=== PATIENT | female | born 1995 | race Caucasian/White ===

== ENCOUNTER 2017-03-30 21:55 | Emergency (ER) | payer SELFPAY ==
[2017-03-30 22:37] VITALS: TEMP 98.5; BMI 20.5
[2017-03-31] MEDS ORDERED: SODIUM CHLORIDE 0.9% 500 ML INFUS.BAG IV ONE (01:29)
[2017-03-31 01:53] LABS: BASOPHIL 0.5 % (0-2.0); MCH 26.9 pg (25.7-33.7); MCHC 33.2 g/dl (32.0-36.0); MEAN CELL VOLUME 81.1 fl (80-96); NEUTROPHILS 76.7 % (42.8-82.8); PLATELET COUNT 213 K/MM3 (134-434); RDW 15.5 % (11.6-15.6); WHITE BLOOD COUNT 8.6 K/mm3 (4.0-10.0)
--- NOTE | 2017-03-31 02:14 | PDOC ---
History of Present Illness - General History Source: Patient Exam Limitations: No Limitations - History of Present Illness Initial Comments: 03/31/17 02:15 The patient is a 21 year old female with no significant past medical history who presents to the ED for bilateral hand numbness and tingling. Patient reports she was out a friends house drinking and states she does not remember most of the night. Earlier today she was told that a friend found her in the bathroom passed out on the floor and noted a small kendra on her left cheekbone near her eye. Patient reports persistent vomiting all day today and no abdominal pain or diarrhea. Prior to arrival, she noted suddenly that both of her hands clenched tight. States she was unable to open both of her hands for about 10 minutes, her hands started slowly becoming less stiff. States both of her hands and still numb and tingling. The patient denies fever, chills, cough, SOB, chest pain, and palpitations. Allergies: NKDA Social History: No alcohol, tobacco, or drug use reported. Past Surgical History: None reported PCP: Dr. Kiran James <Tasia Stokes - Last Filed: 03/31/17 04:40> <Rosa Stewart - Last Filed: 03/31/17 06:48> - General Chief Complaint: Nausea/Vomiting Stated Complaint: BODY TINGLING Time Seen by Provider: 03/30/17 23:32 Past History <Tasia Stokes - Last Filed: 03/31/17 04:40> - Psycho/Social/Smoking Cessation Hx Suicidal Ideation: No Smoking History: Never smoked Information on smoking cessation initiated: No <Rosa Stewart - Last Filed: 03/31/17 06:48> - Past Medical History Allergies/Adverse Reactions: Allergies Allergy/AdvReac Type Severity Reaction Status Date / Time No Known Allergies Allergy Verified 03/30/17 22:12 Home Medications: Ambulatory Orders NK [No Known Home Medication] 03/30/17 Review of Systems - Review of Systems Able to Perform ROS?: Yes Comments:: 03/31/17 02:15 CONSTITUTIONAL: Absent: fever, no chills, no fatigue EYES: Absent: visual changes ENT: Absent: ear pain, no sore throat CARDIOVASCULAR: Absent: chest pain, no palpitations RESPIRATORY: Absent: cough, no SOB GI: +vomiting Absent: abdominal pain, no nausea, no constipation, no diarrhea GENITOURINARY: Absent: dysuria, no frequency, no hematuria MUSCULOSKELETAL: Absent: back pain, no arthralgia, no myalgia SKIN: Absent: rash NEURO: +bilateral hands stiffness, numbness and tingling Absent: headache <Tasia Stokes - Last Filed: 03/31/17 04:40> *Physical Exam - Vital Signs Last Vital Signs Temp Pulse Resp BP Pulse Ox 98.5 F 125 H 24 129/85 100 03/30/17 22:12 03/30/17 22:12 03/30/17 22:12 03/30/17 22:12 03/30/17 22:12 - Physical Exam Comments: 03/31/17 02:15 GENERAL: Well-appearing, well-nourished. No apparent distress. HEENT: Normocephalic. Hematoma at left zygomatic arch. Left central forehead hematoma and swelling. PERRLA, EOMI. No conjunctival pallor. Sclera are non-icteric. Moist mucous membranes. Oropharynx is clear. Left upper lip hematoma and swelling. NECK: Supple (c-collar placed during presentation given patients h/o). No bony tenderness in neck. Full ROM. No JVD. Carotid pulses 2+ and symmetric, without bruits. No thyromegaly. No lymphadenopathy. CARDIOVASCULAR: Normal S1, S2. Regular rate and rhythm. PULMONARY: Clear to auscultation bilaterally. ABDOMEN: Soft, non-distended, non-tender. No rebound or guarding. MUSCULOSKELETAL Normal range of motion at all joints. No bony deformities or tenderness. No CVA tenderness. EXTREMITIES: Normal ROM in all four extremities. No gross deformities. SKIN: Warm, dry. No rash NEUROLOGICAL: Alert, awake, appropriate. Cranial nerves 2-12 intact. No focal neurological deficits. <Tasia Stokes - Last Filed: 03/31/17 04:40> - Vital Signs Last Vital Signs Temp Pulse Resp BP Pulse Ox 98.5 F 125 H 24 129/85 100 03/30/17 22:12 03/30/17 22:12 03/30/17 22:12 03/30/17 22:12 03/30/17 22:12 <Rosa Stewart - Last Filed: 03/31/17 06:48> Heart Score/ECG Review - ECG Impressions Comment:: 03/31/17 02:16 NSR @88bpm <Tasia Stokes - Last Filed: 03/31/17 04:40> ED Treatment Course - LABORATORY CBC & Chemistry Diagram: 03/31/17 01:43 03/31/17 01:43 - ADDITIONAL ORDERS Additional order review: Laboratory Results 03/31/17 02:05 Urine HCG, Qual Negative 03/31/17 01:43 RBC 3.97 MCV 81.1 MCHC 33.2 RDW 15.5 MPV 8.0 Neutrophils % 76.7 Lymphocytes % 16.1 Monocytes % 6.7 Eosinophils % 0.0 Basophils % 0.5 - RADIOLOGY Radiograph Interpretation: 03/31/17 04:40 Exam: Noncontrast CT head Reviewed by Imaging flight operations inspector: Findings: Multiple axial images were obtained of the brain without contrast. There is no mass-effect, midline shift or hemorrhage. There is no intra-axial or extra-axial fluid collection. The visualized portions of the paranasal sinuses are clear. The middle ear cavities and mastoids are clear. No calvarial fracture seen. Impression: No mass effect or intracranial hemorrhage. No traumatic injuries identified. Exam: Noncontrast CT cervical spine Reviewed by Imaging flight operations inspector: Findings: The bone mineralization appears normal. The vertebral body heights and disc spaces are preserved. Anatomic alignment of the cervical spine is maintained. No fracture or listhesis is seen. No adenopathy collection or hematoma seen in the soft tissues the neck. Impression : No fracture or listhesis seen. - Medications Given in the ED: ED Medications Discontinued Medications Generic Name Dose Route Start Last Admin Trade Name Freq PRN Reason Stop Dose Admin Sodium Chloride 1,000 ml 03/31/17 01:29 03/31/17 02:04 Normal Saline - IV 03/31/17 01:30 1,000 ml ONCE ONE Administration <Tasia Stokes - Last Filed: 03/31/17 04:40> - LABORATORY CBC & Chemistry Diagram: 03/31/17 01:43 03/31/17 01:43 <Rosa Stewart - Last Filed: 03/31/17 06:48> Medical Decision Making - Medical Decision Making 03/31/17 05:08 Patient Name: Ernestina Spain This is a preliminary report by imaging transitional studies instructor Exam : Noncontrast CT head Images: 398 Clinical indication: Passed out yesterday. Found on floor drunk. Findings: Multiple axial images were obtained of the brain without contrast. There is no mass-effect, midline shift or hemorrhage. There is no intra-axial or extra-axial fluid collection. The visualized portions of the paranasal sinuses are clear. The middle ear cavities and mastoids are clear. No calvarial fracture seen. Impression: No mass effect or intracranial hemorrhage. No traumatic injuries identified. THIS DOCUMENT HAS BEEN ELECTRONICALLY SIGNED 03/31/17 05:09 Patient Name: Ernestina Spain This is a preliminary report by imaging transitional studies instructor Exam : Noncontrast CT cervical spine Images: 409 Clinical indication: Passed out drunk. Reformatted coronal and sagittal images were provided. Findings: The bone mineralization appears normal. The vertebral body heights and disc spaces are preserved. Anatomic alignment of the cervical spine is maintained. No fracture or listhesis is seen. No adenopathy collection or hematoma seen in the soft tissues the neck. Impression: No fracture or listhesis seen. THIS DOCUMENT HAS BEEN ELECTRONICALLY SIGNED 03/31/17 06:47 Pt was found drunk in her friends bathroom, passed out with swelling to head and face and lip. Here she comes with spasm of her hands after she spent all of today vomiting. She has electrolyte imbalance. Her head CT and cervical spine CT are normal. Her c collar was placed when she was examined by me and removed once her result came back normal. Pt is feeling better with hydration and repletion of her electrolytes. She will be sent home. <Rosa Stewart - Last Filed: 03/31/17 06:48> *DC/Admit/Observation/Transfer - Attestations Scribe Attestion: 03/31/17 02:15 Documentation prepared by Tasia Stokes, acting as medical sonographer for Rosa Stewart MD/DO. <Tasia Stokes - Last Filed: 03/31/17 04:40> - Discharge Dispostion Admit: No <Rosa Stewart - Last Filed: 03/31/17 06:48> Diagnosis at time of Disposition: Electrolyte imbalance, Vomiting, Cramp in limb, Cramp and spasm - Discharge Dispostion Disposition: HOME Condition at time of disposition: Improved - Referrals Referrals: Kiran James MD [Primary Care Provider] - - Patient Instructions Printed Discharge Instructions: DI for Vomiting -- Adult, DI for Alcohol Poisoning
[2017-03-31 02:16] LABS: ALBUMIN 4.3 g/dl (3.4-5.0); AMYLASE 41 U/L (25-115); ANION GAP 13 (8-16); CALCIUM 9.5 mg/dL (8.5-10.1); CO2 23 mmol/L (21-32); CREATININE 0.6 mg/dL (0.55-1.02); GLUCOSE,RANDOM 87 mg/dL (74-106); MAGNESIUM 1.7 mg/dL (1.8-2.4); SGOT/AST 26 U/L (15-37); SGPT/ALT 34 U/L (12-78)
[2017-03-31 02:18] LABS: ALK PHOS 82 U/L (45-117); BILIRUBIN,TOTAL 0.8 mg/dL (0.2-1.0); TOT PROT 7.9 g/dl (6.4-8.2)
[2017-03-31] MEDS ORDERED: MAGNESIUM SULF 50% (8.12 MEQ/2 ML-1 GM VIAL) IVPB ONE (02:24)
[2017-03-31] MEDS ORDERED: POTASSIUM CHLORIDE TABS 20 MEQ TABLET.ER (FP) PO ONE ×2 (02:24→02:36)
[2017-03-31] MEDS ORDERED: MAGNESIUM SULF 50% (8.12 MEQ/2 ML-1 GM VIAL) ONE (02:36)
[2017-03-31] MEDS ORDERED: KCL 10 MEQ IVPB 200 ML IVPB ONE (02:36)
[2017-03-31] MEDS: KCL 10 MEQ IVPB 100 ML IVPB SCH ×2 (02:40→04:36)
[2017-04-02 04:36] VITALS: BP 112/79; PULSE 90
--- NOTE | 2017-04-02 13:24 | EKG ---
Test Reason : Blood Pressure : / mmHG Vent. Rate : 082 BPM Atrial Rate : 082 BPM P-R Int : 142 ms QRS Dur : 082 ms QT Int : 368 ms P-R-T Axes : 072 076 056 degrees QTc Int : 429 ms NORMAL SINUS RHYTHM NORMAL ECG NO PREVIOUS ECGS AVAILABLE Confirmed by AMADOU GORE, EDWIN ([id number]) on 04/02/2017 1:24:39 PM Referred By: Confirmed By:EDWIN TOBAR MD
== END 2017-03-31 05:47 | disposition home or self-care (01) ==
LOC: JER 21:55
PROC: 3E0337Z Introduction of Electrolytic and Water Balance Substance into Peripheral Vein, Percutaneous Approach (ICD-10-PCS; principal; 2017-03-30)
PROC: 3E033GC Introduction of Other Therapeutic Substance into Peripheral Vein, Percutaneous Approach (ICD-10-PCS; 2017-03-30)
DX: E87.8 Other disorders of electrolyte and fluid balance, not elsewhere classified (principal); E87.6 Hypokalemia; R25.2 Cramp and spasm; F10.10 Alcohol abuse, uncomplicated; S00.83XA Contusion of other part of head, initial encounter; S00.531A Contusion of lip, initial encounter; X58.XXXA Exposure to other specified factors, initial encounter; Y93.89 Activity, other specified; Y92.091 Bathroom in other non-institutional residence as the place of occurrence of the external cause
CPT/HCPCS: 36415; 70450-TC; 72125-TC; 80053; 82150; 83735; 84703; 85025; 93005; 93010; 99283-25